=== PATIENT | female | born 1965 | race Caucasian/White ===

== ENCOUNTER 2019-03-18 10:17 | Emergency (ER) | payer OTHER ==
[~2019-03-18] VITALS: Ht 157.5 cm; Wt 86.2 kg
[2019-03-18] MEDS ORDERED: SIMV20TA6 PO (10:32)
[2019-03-18] MEDS ORDERED: IBUP-1957 PO (10:32)
[2019-03-18] MEDS ORDERED: ESCI5TAB PO (10:32)
[2019-03-18] MEDS ORDERED: METF-440 PO (10:32)
[2019-03-18] MEDS ORDERED: IV NORMAL SALINE 500 ML BAG IV ONE (11:00)
[2019-03-18 11:15] LABS: BASOPHILS # (AUTO) 0.1 K/uL (0.0-8.0); BASOPHILS % (AUTO) 0.9 % (0.0-2.0); EOSINOPHILS # (AUTO) 0.1 K/uL (0.0-0.7); EOSINOPHILS % (AUTO) 2.5 % (0.0-7.0); HEMATOCRIT 40.2 % (31.2-41.9); HEMOGLOBIN 13.2 g/dL (10.9-14.3); LYMPHOCYTES # (AUTO) 1.7 K/uL (20.0-40.0); LYMPHOCYTES % (AUTO) 29.5 % (20.5-51.5); MEAN CORPUSCULAR HEMOGLOBIN 29.2 uug (24.7-32.8); MEAN CORPUSCULAR HGB CONC 33 g/dL (32.3-35.6); MONOCYTES # (AUTO) 0.5 K/uL (2.0-10.0); MONOCYTES % (AUTO) 8.5 % (0.0-11.0); NEUTROPHILS # (AUTO) 3.4 K/uL (1.8-8.9); NEUTROPHILS % (AUTO) 58.6 % (38.5-71.5); PLATELET COUNT (AUTO) 154 K/uL (179-408); RED BLOOD CELL COUNT(AUTO) 4.52 MIL/uL (3.63-4.92); WHITE BLOOD COUNT (AUTO) 5.8 K/uL (3.8-11.8)
[2019-03-18 11:20] LABS: CREATININE 0.8 mg/dL (0.6-1.3); POTASSIUM 4.1 mmol/L (3.5-5.1)
[2019-03-18 11:35] LABS: BILIRUBIN,DIRECT 0.1 mg/dL (0.0-0.2); BILIRUBIN,TOTAL 0.6 mg/dL (0.2-1.0); TOTAL PROTEIN, SERUM 7.1 g/dL (6.4-8.2)
--- NOTE | 2019-03-18 11:58 | NUR ---
patient present with spouse both states patient has "anxiety she worries alot about economy and everthing.
[2019-03-18 12:00] VITALS: BP 107/61
== END 2019-03-18 12:17 | disposition home or self-care (01) ==
LOC: ER 10:17
DX: R07.89 Other chest pain (principal); E11.9 Type 2 diabetes mellitus without complications; F41.9 Anxiety disorder, unspecified; F32.9 Major depressive disorder, single episode, unspecified; E78.5 Hyperlipidemia, unspecified; Z79.1 Long term (current) use of non-steroidal anti-inflammatories (NSAID); Z79.899 Other long term (current) drug therapy
CPT/HCPCS: 36415; 70030-TC; 71045; 85025; 85730; 93005; A4663; J7040

== ENCOUNTER 2019-07-14 06:38 | Emergency (ER) | payer OTHER ==
[~2019-07-14] VITALS: Ht 157.5 cm; Wt 86.2 kg
[~2019-07-14 06:38] MED LIST: ESCI5TAB PO; IBUP-1957 PO; METF-440 PO; SIMV-46 PO
[2019-07-14] MEDS ORDERED: ONDANSETRON 4 MG/2 ML VIAL ONE (06:55)
[2019-07-14] MEDS ORDERED: PANTOPRAZOLE SODIUM 40 MG VIAL ONE (06:56)
--- NOTE | 2019-07-14 06:58 | NUR ---
Dr. Edouard at bedside for MSE.
--- NOTE | 2019-07-14 07:04 | NUR ---
Report given to Aparna shahid.
[2019-07-14] MEDS ORDERED: ONDANSETRON 4 MG/2 ML VIAL IV ONE (07:15)
[2019-07-14] MEDS ORDERED: IV NORMAL SALINE 1000 ML BAG IV ONE ×2 (07:15→08:00)
[2019-07-14] MEDS ORDERED: PANTOPRAZOLE SODIUM 40 MG VIAL IV ONE (07:15)
[2019-07-14 07:24] LABS: BASOPHILS # (AUTO) 0.1 K/uL (0.0-8.0); BASOPHILS % (AUTO) 0.6 % (0.0-2.0); EOSINOPHILS # (AUTO) 0.1 K/uL (0.0-0.7); EOSINOPHILS % (AUTO) 0.6 % (0.0-7.0); HEMOGLOBIN 14.3 g/dL (10.9-14.3); LYMPHOCYTES # (AUTO) 0.7 K/uL (20.0-40.0); LYMPHOCYTES % (AUTO) 7.7 % (20.5-51.5); MEAN CORPUSCULAR HEMOGLOBIN 29.5 uug (24.7-32.8); MEAN CORPUSCULAR HGB CONC 33 g/dL (32.3-35.6); MONOCYTES # (AUTO) 0.8 K/uL (2.0-10.0); MONOCYTES % (AUTO) 8.4 % (0.0-11.0); NEUTROPHILS # (AUTO) 7.4 K/uL (1.8-8.9); NEUTROPHILS % (AUTO) 82.7 % (38.5-71.5); PLATELET COUNT (AUTO) 165 K/uL (179-408); RED BLOOD CELL COUNT(AUTO) 4.83 MIL/uL (3.63-4.92)
[2019-07-14 07:36] LABS: BILIRUBIN,DIRECT 0.1 mg/dL (0.0-0.2); BILIRUBIN,TOTAL 0.5 mg/dL (0.2-1.0); TOTAL PROTEIN, SERUM 8.3 g/dL (6.4-8.2)
--- NOTE | 2019-07-14 07:50 | NUR ---
Jerel monge in ED - 07/14/19 at 0948 by JESSIE Patient is resting comfortably in bed with eyes closed, pending urine specimen. PATIENT DENIES AT THIS MOMENT.
--- NOTE | 2019-07-14 07:50 | NUR ---
Patient is resting comfortably on gurney with eyes closed. PATIENT IS PAIN FREE AT THIS MOMENT.
--- NOTE | 2019-07-14 08:56 | NUR ---
Patient ambulated to bathroom with slow steady gait, urine collected & sent to lab.
[2019-07-14 09:06] LABS: *BILIRUBIN,URIN NEGATIVE (NEGATIVE); *BLOOD, URINE 1+ (NEGATIVE); *KETONES,URINE NEGATIVE (NEGATIVE); *UROBILINOGEN,URINE 0.2 E.U./dl (NORMAL); LEUKOCYTE ESTERASE ,URINE TRACE (NEGATIVE); NITRITE, URINE NEGATIVE (NEGATIVE); UGLUCOSE NEGATIVE (NEGATIVE)
[2019-07-14 09:07] LABS: *CLARITY,URINE CLEAR (CLEAR); *COLOR,URINE YELLOW (YELLOW)
[2019-07-14 09:15] LABS: SQUAMOUS EPITHELIAL CELL,UR FEW /HPF (NONE SEEN)
--- NOTE | 2019-07-14 09:18 | NUR ---
PO challenge started. Small amount of juice given. Patient denies nausea and abdominal pains.
[2019-07-14 09:34] LABS: BACTERIA,URINE FEW /HPF (NONE SEEN)
--- NOTE | 2019-07-14 09:46 | NUR ---
No vomiting seen, patient c/o dizziness, MD is aware.
[2019-07-14] MEDS ORDERED: MECLIZINE HCL 25 MG TABLET ONE (09:51)
[2019-07-14] MEDS ORDERED: MECLIZINE HCL 25 MG TABLET PO ONE (10:00)
--- NOTE | 2019-07-14 10:01 | NUR ---
IV removed. Catheter intact and site benign. Pressure and 4x4 gauze applied to site. No bleeding noted. Patient discharged to home in stable conditon & steady gait. Written and verbal after care instructions given to patient and spouse. Patient and spouse verbalized understanding of instructions. Copies of all the tests results were given per patient's request.
[2019-07-14 10:02] VITALS: BP 121/70
== END 2019-07-14 10:04 | disposition home or self-care (01) ==
LOC: ER 06:42
DX: H81.10 Benign paroxysmal vertigo, unspecified ear (principal); R11.10 Vomiting, unspecified; K21.9 Gastro-esophageal reflux disease without esophagitis; F41.9 Anxiety disorder, unspecified; F32.9 Major depressive disorder, single episode, unspecified; E78.5 Hyperlipidemia, unspecified; Z79.899 Other long term (current) drug therapy; Z79.1 Long term (current) use of non-steroidal anti-inflammatories (NSAID)
CPT/HCPCS: 36415; 80048; 80076; 81000; 81001; 83690; 85025; 93005; 96361; 96374; 96375; 99284; C9113; J2405; A4663; J7030; J8597